=== PATIENT | male | born 1975 | race Caucasian/White ===

== ENCOUNTER 2017-10-07 14:30 | Outpatient (RCR) | payer OTHER, SELFPAY | END 2017-10-07 14:31 | disposition home or self-care (01) | LOC: PT 14:30 | PROVIDERS: Family Provider Family Medicine; PCP Family Medicine; Visit Provider Orthopaedic Surgery | DX: M25.561 Pain in right knee (principal) | CPT/HCPCS: 97010; 97014; 97033; 97110; 97140; G0283 ==

== ENCOUNTER → 2019-07-06 09:55 | Outpatient (CLI) | payer OTHER, SELFPAY ==
--- NOTE | 2019-07-06 10:02 | XR_ITS ---
PROCEDURE: XR KNEE RT 4V CLINICAL INDICATION: 4 views weightbearing Right knee pain COMPARISON: KNEE3L KNEE-3 VIEWS-LT from 12/06/2014 [id number] KNEE-4 OR 5 VIEWS-RT from 02/07/2017 FINDINGS: No fracture or dislocation. No lytic or blastic change. There is normal mineralization. There are minimal osteoarthritic changes involving the medial and lateral compartment. Ununited tibial tuberosity ossification center noted. Other findings:None. IMPRESSION: Minimal osteoarthritic change Dictated by: Pernell Stratton MD 07/06/2019 12:18 Electronically signed by Pernell Stratton MD in [place] 07/06/2019 12:18
--- NOTE | 2019-07-06 10:02 | XR_ITS ---
PROCEDURE: XR KNEE LT 4V CLINICAL INDICATION: left knee pain COMPARISON: KNEE3L KNEE-3 VIEWS-LT from 12/06/2014 [id number] KNEE-4 OR 5 VIEWS-RT from 02/07/2017 FINDINGS: No fracture or dislocation. No lytic or blastic change. There is normal mineralization. There are minimal osteoarthritic changes of the patellofemoral joint Other findings:None. IMPRESSION: Minimal osteoarthritic change patellofemoral joint not significantly changed Dictated by: Pernell Stratton MD 07/06/2019 12:20 Electronically signed by Pernell Stratton MD in [place] 07/06/2019 12:20
== END ==
PROVIDERS: PCP Family Medicine; Visit Provider Orthopaedic Surgery
DX: M25.562 Pain in left knee (principal); M25.561 Pain in right knee; Z98.890 Other specified postprocedural states
CPT/HCPCS: 73564

== ENCOUNTER → 2020-04-03 16:16 | Outpatient (CLI) | payer BC, SELFPAY | PROVIDERS: PCP Family Medicine; Visit Provider Nurse Practitioner | DX: Z03.818 Encounter for observation for suspected exposure to other biological agents ruled out (principal) | CPT/HCPCS: U0003 ==

== ENCOUNTER 2020-04-17 12:55 | Emergency (ER) | payer BC, SELFPAY ==
[2020-04-17 13:08] VITALS: BP 132/90; PULSE 84; RESP 19; TEMP 36.6; O2SAT 98; BMI 21.7
--- NOTE | 2020-04-17 13:12 | HMH.EDUTC ---
[facility] [place] Disposition Clinical Impression: Shingles Qualifiers: Herpes zoster complications: without complications Qualified Code(s): B02.9 - Zoster without complications Disposition: Home, Self-Care Condition on Discharge: Good Instructions: Shingles (Herpes Zoster) (Alternative Therapy), Shingles, DI for Shingles, Acyclovir Additional Instructions: Take medication as prescribed Your referral was faxed to [facility] you will need to call for appointment Make sure to follow up with Eye Doctor You was given referral to [facility] but may follow up where ever you choose FOllow up with Family doctor for further treatment and evaluation Return if needed Straight to ER if any life threatening symptoms Over the counter Motrin may help with pain Over the counter Benadryl may help with itching Prescriptions: Acyclovir [Acyclovir 800mg tab] 800 mg PO 5XDAY 7 Days #35 tab Transmission Status: Received by [id number] Referrals: Ricardo Baron MD [Primary Care Provider] - As needed Dr Horan [Other] Gregorio Brandon MD [Referring] - Time of Disposition: 13:24 Medical Decision Making - Mike Inquiry Pt receiving controlled substance: No Mike was queried for this patient: No Vital Signs: 04/17/20 13:08 04/17/20 13:28 Temperature 97.8 F 97.8 F Temperature Source Oral Pulse Rate 84 Pulse Rate [Right Brachial] 84 Respiratory Rate 19 19 Blood Pressure 132/90 Blood Pressure [Right Arm] 132/90 Blood Pressure Mean [Right Arm] 104 Blood Pressure Source [Right Arm] Automatic Cuff Blood Pressure Position [Right Arm] Sitting 02 Sat by Pulse Oximetry 98 Oxygen Delivery Method Room Air [facility] [place] HPI - General Stated complaint: head and facial rash, and spot on leg Time Seen by Provider: 04/17/20 13:12 Mode of Arrival: Ambulatory Source of Information: Patient Limitations: No Limitations Description of Symptoms (Recalled from Triage Doc. by RN): PATIENT C/O RASH TO FACE SINCE LAST FRIDAY HEENT Symptoms (Recalled from RN notes): No Resp Symptoms (Recalled from RN notes): No Skin Symptoms (Recalled from RN notes): Yes MS Symptoms (Recalled from RN notes): No Functional Status (Recalled from RN notes): WNL - History of Present Illness Provider Complaint: Patient states that he had a sore spot in the left side of the top of his head and he scratched it last week States that it has been sore and the last couple of days he has had rash break out that has spread down his forehead area and getting close to his left eye States that it hurts and valdes and was unsure what it was. States that also has a history of skin cancer and noticed a small spot on his left lower leg and needs referral to Dermatology - Related Data Previous Rx's Medication Instructions Recorded Acyclovir [Acyclovir 800mg tab] 800 mg PO 5XDAY 7 Days #35 tab 04/17/20 Allergies Allergy/AdvReac Type Severity Reaction Status Date / Time acetaminophen [From [place]] Allergy Unknown Verified 09/14/19 10:37 hydrocodone [From [place]] Allergy Unknown Verified 09/14/19 10:37 - Worker's Comp Is this a Worker's Comp case?: No [facility] History - Hepatitis A Screen Drug use history?: No High risk sexual behaviors?: No History of sexually transmitted infection?: No Currently employed?: No Childcare worker?: No Do you have indoor plumbing?: Yes Do you have electricity?: Yes Attestation statement:: This patient has been screened for Hepatitis A risk factors. I have reviewed the patient's past medical history: Yes Medical History: Reports:: Cancer Other Medical History: Reports: Arthritis, Other Laterality Cases: Bilateral: Arthroscopy Knee Other Surgeries: Yes: Cancer Surgery - Social History Smoking Status: Never smoker Tobacco Type: smokeless tobacco Alcohol Intake: never Occupational Status: other Family Hx:: No significant family history ROS Obtained: Yes All systems reviewed & no additional complaints, Yes Systems
[2020-04-17 13:28] VITALS: BP 132/90; PULSE 84; RESP 19; TEMP 36.6; O2SAT 98
== END 2020-04-17 13:30 | disposition home or self-care (01) ==
PROVIDERS: Emergency Provider Nurse Practitioner; PCP Family Medicine
DX: B02.9 Zoster without complications (principal)
CPT/HCPCS: 99201

== ENCOUNTER → 2020-09-19 12:32 | Outpatient (CLI) | payer BC, SELFPAY ==
[2020-09-19 14:22] LABS: Coronavirus 19 IgG Antibody Positive (Negative); Coronavirus 19 IgM Antibody Negative (Negative)
== END ==
PROVIDERS: Visit Provider Surgery
DX: Z01.812 Encounter for preprocedural laboratory examination (principal); Z20.822 Contact with and (suspected) exposure to COVID-19; Z86.16 Personal history of COVID-19; Z12.11 Encounter for screening for malignant neoplasm of colon
CPT/HCPCS: 36415; 86328

== ENCOUNTER 2020-09-21 08:32 | Day surgery (SDC) | payer BC, SELFPAY ==
[2020-09-18 12:53] VITALS: BMI 21.7
[2020-09-21 08:52] VITALS: BP 124/78; PULSE 74; RESP 18; TEMP 36.4; O2SAT 97
[2020-09-21 09:17] VITALS: O2SAT 97
--- NOTE | 2020-09-21 09:42 | HMH.ANESCL ---
[facility] Anesthesia Checklist - Structural Data Admitted From: Home Planned Operative Procedure/s: colonoscopy Consent for Planned Operative Procedure(s) Verified: Yes - Airway Assessment C-Spine Mobility Assessed: Yes TMJ Mobility Assessed: Yes Dentition: Good Dentition - Neurological Assessment Level of Consciousness: Awake, Alert, Appropriate - Anesthesia Plan Anesthesia Risk discussed: Yes Anesthesia Plan: Verified ASA Class: II Anesthesia Type: MAC [facility] History I have reviewed the patient's past medical history: Yes Medical History: Reports:: Cancer (malignant melanoma) Denies:: Diabetes Mellitus Type 1, Diabetes Mellitus Type 2, MRSA, Seizures *Have you ever received a pneumonia vaccine?: No *Have you received a flu vaccine this season?: No Other Medical History: Reports: Arthritis, Other Anesthesia experience/problems:: none Laterality Cases: Bilateral: Arthroscopy Knee Other Surgeries: Yes: Cancer Surgery Amputation: No Fractures: Yes (tib/fib angela and screws) - *Social History Last grade of school completed: Some college Smoking Status: Never smoker Tobacco Type: smokeless tobacco Alcohol Intake: current Alcohol Intake Frequency:: a few times a month Substance Use Type: denies use *Occupational Status:: employed *Travel in the last 8 weeks: None Family Hx:: No significant family history
[2020-09-21 09:55] VITALS: BP 96/65; PULSE 77; RESP 18; TEMP 36.3; O2SAT 95
--- NOTE | 2020-09-21 09:56 | P.PCN_ITS ---
- Procedure: Date: 09/21/20 Patient Date of :: 1975 Procedure Performed:: Colonoscopy with polypectomy Indications:: Screening Performing Provider:: Livan Dinero MD Referring Provider:: . Sedation:: Monitored anesthesia care Procedure:: After informed consent was obtained the patient was taken to the endoscopy suite. Sedation ensued after the patient was transferred to the left lateral decubitus position. Pulse, blood pressure, and oxygen saturation were monitored throughout the procedure. Digital rectal exam revealed no significant ab normality. The colonoscope was placed in position. The entire colon was evaluated. The colonoscope was carefully removed and the patient was transferred to recovery in stable condition. Please see findings and specimens below for detail. Findings:: Bowel preparation relatively fair Fairly severe spasticity Severe tortuosity of hepatic flexure/right colon Polyps (see specimens) Specimens:: Polyp at 60 cm (cold snare) Polyp at 50 cm (cold snare) Recommendations:: Timing of repeat colonoscopy is pending pathology but will likely be between 2-3 years secondary to nature of polyps, tortuosity, and spasticity. Complications:: No immediate Estimated blood obtained (mL): 1
[2020-09-21 10:05] VITALS: BP 97/62; PULSE 57; RESP 18; TEMP 36.3; O2SAT 98
[2020-09-21 10:15] VITALS: BP 95/60; PULSE 52; RESP 16; TEMP 36.3; O2SAT 100
[2020-09-21 10:41] VITALS: BP 104/50; PULSE 67; RESP 18; TEMP 36.3; O2SAT 100
== END 2020-09-21 10:41 | disposition home or self-care (01) ==
LOC: OUTP 08:35
PROVIDERS: PCP Internal Medicine Adolescent Medicine; Visit Provider Surgery
PROC: 0DJD8ZZ Inspection of Lower Intestinal Tract, Via Natural or Artificial Opening Endoscopic (ICD-10-PCS; CPT 45385; principal; 2020-09-21 09:30)
DX: Z12.11 Encounter for screening for malignant neoplasm of colon (principal); K58.9 Irritable bowel syndrome, unspecified; K56.2 Volvulus; K63.5 Polyp of colon; M19.90 Unspecified osteoarthritis, unspecified site; Z85.820 Personal history of malignant melanoma of skin; Z88.6 Allergy status to analgesic agent
CPT/HCPCS: 45385

== ENCOUNTER → 2020-12-27 09:55 | Outpatient (CLI) | payer BC, SELFPAY ==
--- NOTE | 2020-12-27 10:00 | XR_ITS ---
PROCEDURE: XR CHEST 2V CLINICAL HISTORY: COUGH COMPARISON: CR CXR CHEST(2 VIEWS-NOT PORTABLE) from 06/22/2015 CR CXR2V XR chest 2V from 07/28/2018 FINDINGS: The cardiomediastinal silhouette and pulmonary vascularity are within normal limits. The lungs are clear without infiltrates, suspicious nodules, or pleural effusions. Few calcified granulomas are noted. No acute bony abnormalities. Postsurgical changes in the right axilla. IMPRESSION: No acute findings. Dictated by: Claudia Mota 12/27/2020 13:04 Claudia Mota in [place] 12/27/2020 13:04
--- NOTE | 2020-12-27 10:00 | XR_ITS ---
PROCEDURE: XR CLAVICLE LT CLINICAL INDICATION: LT SHOULDER PAIN COMPARISON: No exams were available for comparison FINDINGS: No fracture or dislocation. No lytic or blastic change. There is normal mineralization. The joint spaces are well-preserved. No significant degenerative/arthritic changes. No erosive changes evident. Other findings:None. IMPRESSION: No acute findings. Dictated by: Claudia Mota 12/27/2020 13:05 Claudia Mota in [place] 12/27/2020 13:05
--- NOTE | 2020-12-27 10:00 | XR_ITS ---
PROCEDURE: XR SHOULDER LT MIN 2V CLINICAL INDICATION: LT ANTERIOR SHOULDER PAIN COMPARISON: No exams were available for comparison FINDINGS: No fracture or dislocation. No lytic or blastic change. There is normal mineralization. The joint spaces are well-preserved. No significant degenerative/arthritic changes. No erosive changes evident. No periarticular calcification. Other findings:No significant soft tissue abnormality. The visualized left hemithorax is unremarkable. IMPRESSION: No acute findings. Dictated by: Claudia Mota 12/27/2020 13:06 Claudia Mota in [place] 12/27/2020 13:06
== END ==
PROVIDERS: PCP Internal Medicine Adolescent Medicine; Visit Provider Internal Medicine Adolescent Medicine
DX: M25.512 Pain in left shoulder (principal); Q74.0 Other congenital malformations of upper limb(s), including shoulder girdle; R05 Cough
CPT/HCPCS: 71046; 73000; 73030

== ENCOUNTER → 2021-11-20 17:07 | Outpatient (CLI) | payer BC, SELFPAY ==
--- NOTE | 2021-11-20 17:16 | XR_ITS ---
PROCEDURE INFORMATION: Exam: XR Left Tibia and Fibula Exam date and time: 11/20/2021 5:11 PM Age: 46 years old Clinical indication: Lower leg; Left; Prior surgery; Surgery date: 6+ months; Surgery type: Hardware; Patient HX: Pain with no injury; Additional info: Ankle pain TECHNIQUE: Imaging protocol: XR Left tibia and fibula. Views: 2 views. COMPARISON: Left ankle radiographs November 20, 2021 5:10 p.m. FINDINGS: Bones/joints: Postoperative changes consistent with ORIF. The proximal portion of the intramedullary fixation device is intact. There are no findings to suggest hardware malfunction. 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 There is no evidence of acute fracture. Soft tissues: Normal. IMPRESSION: 1. Postoperative changes consistent with ORIF. 2. Chronic posttraumatic deformity involving the fibular diaphysis.
--- NOTE | 2021-11-20 17:16 | XR_ITS ---
PROCEDURE INFORMATION: Exam: XR Left Ankle Exam date and time: 11/20/2021 5:10 PM Age: 46 years old Clinical indication: Pain; Ankle; Left; Prior surgery; Surgery date: 6+ months; Surgery type: Hardware; Additional info: Ankle pain TECHNIQUE: Imaging protocol: XR Left ankle. Views: 3 or more views. COMPARISON: None FINDINGS: Bones/joints: Evidence of previous ORIF involving the visualized tibia. No evidence of hardware malpositioning. No evidence of acute osseous injury. Soft tissues: Normal. IMPRESSION: 1. Postoperative changes consistent with previous ORIF of the visualized tibia. 2. Otherwise unremarkable left ankle.
[2021-11-20 17:40] LABS: Basophils % 0.4 % (0.1-2.0); Eosinophils # 0.1 K/mm3 (0.0-0.4); Eosinophils % 0.9 % (0.1-12.0); Hematocrit 49.5 % (42.0-52.0); Hemoglobin 15.8 g/dL (14.1-18.0); Lymphocytes # 1.7 K/mm3 (0.7-4.5); Lymphocytes % 20.7 % (10-50); Mean Corpuscular HGB Conc 31.9 g/dL (31.8-35.4); Mean Corpuscular Hemoglobin 33.9 pg (27.0-31.2); Mean Corpuscular Volume 106.3 fl (80-94); Mean Platelet Volume 7.7 fl (7.4-10.4); Monocytes # 0.5 K/mm3 (0.1-1.0); Neutrophils # 5.8 K/mm3 (1.8-7.8); Neutrophils % 72.1 % (37.0-80.0); Platelet Count 641 K/mm3 (142-424); Red Blood Count 4.66 M/mm3 (4.60-6.20); Red Cell Distribution Width 13.9 % (11.5-17.5)
[2021-11-20 18:08] LABS: C-Reactive Protein 0.6 mg/L (0-4)
[2021-11-20 18:25] LABS: Erythrocyte Sedimentation Rate 4 mm/hr (0-15)
== END ==
PROVIDERS: PCP Internal Medicine Adolescent Medicine; Visit Provider Orthopaedic Surgery
DX: M25.572 Pain in left ankle and joints of left foot (principal); M77.9 Enthesopathy, unspecified
CPT/HCPCS: 36415; 73590; 73610; 85025; 85651; 86140

== ENCOUNTER → 2021-12-06 13:26 | Outpatient (CLI) | payer BC, SELFPAY ==
--- NOTE | 2021-12-06 13:26 | MR_ITS ---
FINAL REPORT CLINICAL HISTORY: possible Calf muscle tear. BRUISING AND PAIN IN MID TIB/FIB [id number]. NO INJURY OR TRAUMA. FINDINGS: Multiplanar MR imaging of the left tibia fibula was performed without contrast. There is an intramedullary angela in the left tibia. There is a chronic left fibula fracture. No bony mass is identified. The musculature is intact. No localized soft tissue inflammation is identified. No soft tissue mass or cyst is identified. IMPRESSION: Intact musculature. No acute bony abnormality. Chronic left fibula fracture. Intramedullary angela in the tibia. Reviewed, Interpreted and Dictated by Baudilio Kirkland III, MD Transcribed by Edward Beckwith Authenticated by Baudilio Kirkland III, MD on 12/06/2021 03:58:42 PM [facility]
== END ==
PROVIDERS: PCP Internal Medicine Adolescent Medicine; Visit Provider Orthopaedic Surgery
DX: M79.662 Pain in left lower leg (principal)
CPT/HCPCS: 73718

== ENCOUNTER 2022-01-17 11:48 | Emergency (ER) | payer BC, SELFPAY ==
[2022-01-17 11:50] VITALS: BP 134/84; PULSE 74; RESP 17; TEMP 36.7; O2SAT 98; BMI 22.4
--- NOTE | 2022-01-17 12:07 | HMH.EDUTC ---
[facility] [place] Disposition Clinical Impression: Tick bite Qualifiers: Encounter type: initial encounter Site of tick bite: unspecified site Qualified Code(s): W57.XXXA - Bitten or stung by nonvenomous insect and other nonvenomous arthropods, initial encounter Disposition: Home, Self-Care Condition on Discharge: Good Instructions: Protect Yourself from Tickborne Illnesses, How to Remove a Tick, Doxycycline Additional Instructions: Watch area for worsening of rash and follow up with your Family Doctor immediately Take medication as prescribed Return if needed Straight to ER if any life threatening symptoms Make sure to follow up in the next 5-7 days to see if your results are back and the finding Prescriptions: Doxycycline Monohydrate [Doxycycline [place] 100mg Tab] 100 mg PO BID 10 Days #20 tab Transmission Status: Pending to [id number] Referrals: Ricardo Carl MD [Primary Care Provider] - As needed Time of Disposition: 12:19 Medical Decision Making - Mike Inquiry Pt receiving controlled substance: No Mike was queried for this patient: No Vital Signs: 01/17/22 11:50 Temperature 98.1 F Temperature Source Oral Pulse Rate [Right Brachial] 74 Respiratory Rate 17 Blood Pressure [Right Arm] 134/84 Blood Pressure Mean [Right Arm] 100 Blood Pressure Source [Right Arm] Automatic Cuff Blood Pressure Position [Right Arm] Sitting 02 Sat by Pulse Oximetry 98 Oxygen Delivery Method Room Air [facility] [place] HPI - General Stated complaint: tick bite/rash Time Seen by Provider: 01/17/22 12:07 Mode of Arrival: Ambulatory Source of Information: Patient Limitations: No Limitations Description of Symptoms (Recalled from Triage Doc. by RN): PATIENT C/O TICK BITE TO LOWER LEFT ABDOMEN THAT HAPPENED YESTERDAY HEENT Symptoms (Recalled from RN notes): No Resp Symptoms (Recalled from RN notes): No Skin Symptoms (Recalled from RN notes): Yes MS Symptoms (Recalled from RN notes): No Functional Status (Recalled from RN notes): WNL - History of Present Illness Provider Complaint: Patient states that he had a tick on him a couple weeks ago and he removed it States that he noticed a couple days ago he was starting to break out in rash around the area he was bitten States that today the rash looked worse so he came in - Related Data Previous Rx's Medication Instructions Recorded Doxycycline Monohydrate 100 mg PO BID 10 Days #20 tab 01/17/22 [Doxycycline [place] 100mg Tab] Allergies Allergy/AdvReac Type Severity Reaction Status Date / Time acetaminophen [From [place]] Allergy Unknown Verified 12/25/21 13:55 hydrocodone [From [place]] Allergy Unknown Verified 12/25/21 13:55 - Worker's Comp Is this a Worker's Comp case?: No [facility] History - Hepatitis A Screen Attestation statement:: This patient has been screened for Hepatitis A risk factors. I have reviewed the patient's past medical history: Yes Medical History: Reports:: Cancer Denies:: Diabetes Mellitus Type 1, Diabetes Mellitus Type 2, MRSA, Seizures Other Medical History: Reports: Arthritis, Other Laterality Cases: Bilateral: Arthroscopy Knee Other Surgeries: Yes: Cancer Surgery, Colonoscopy Amputation: No Fractures: Yes (tib/fib angela and screws) - Social History Smoking Status: Never smoker Tobacco Type: smokeless tobacco Alcohol Intake: current Alcohol Intake Frequency:: a few times a month Substance Use Type: denies use Occupational Status: employed Family Hx:: No significant family history ROS Obtained: Yes All systems reviewed & no additional complaints, Yes Systems reviewed as appropriate & no additional complaints - Constitutional Constitutional: Reports system reviewed and no additional complaints, except as docu, Denies body ache, Denies chills, Denies fever(s) - ENT Ears, Nose, Mouth, and Throat: Reports system reviewed and no additional complaints, except as docu - Cardiovascular Cardiovascular: Reports system reviewed and no additiona
[2022-01-17 12:15] VITALS: BP 134/84; PULSE 74; RESP 17; TEMP 36.7; O2SAT 98
[2022-02-04 17:10] LABS: IgG P18 Ab. Absent (.); IgG P23 Ab. Absent (.); IgG P28 Ab. Absent (.); IgG P30 Ab. Absent (.); IgG P39 Ab. Absent (.); IgG P41 Ab. Absent (.); IgG P45 Ab. Absent (.); IgG P58 Ab. Absent (.); IgG P66 Ab. Absent (.); IgG P93 Ab. Absent (.); IgM P23 Ab. Absent (.); IgM P39 Ab. Absent (.); IgM P41 Ab. Absent (.); Lyme IgG WB Interp. Negative (.); Lyme IgM WB Interp. Negative (.)
== END 2022-01-17 12:23 | disposition home or self-care (01) ==
PROVIDERS: Emergency Provider Nurse Practitioner; PCP Internal Medicine Adolescent Medicine
DX: R21 Rash and other nonspecific skin eruption (principal); W57.XXXA Bitten or stung by nonvenomous insect and other nonvenomous arthropods, initial encounter
CPT/HCPCS: 86617; 99212; G0463

== ENCOUNTER 2022-10-31 12:32 | Emergency (ER) | payer BC, SELFPAY ==
[2022-10-31 13:30] VITALS: BP 124/87; PULSE 87; RESP 20; TEMP 36.9; O2SAT 98; BMI 23.0
--- NOTE | 2022-10-31 13:36 | EXP.UTC ---
Discharge Plan Disposition Patient Disposition: Home, Self-Care Condition: Good Prescriptions Prescriptions: New benzonatate [benzonatate] 100 mg capsule 100 mg PO TIDP PRN (Reason: Cough) Qty: 30 0RF methylprednisolone 4 mg Tablets,Dose Pack 4 mg PO DIRECTED Qty: 21 0RF amoxicillin-pot clavulanate 875-125 mg Tablet 1 tab PO Q12H Qty: 20 0RF No Action methocarbamol 500 mg tablet 500 mg PO NEEDED PRN (Reason: .) Label Comments: TAKE 2 TABLETS BY MOUTH FOUR TIMES DAILY FOR 5 DAYS alfuzosin 10 mg tablet extended release 24 hr 10 mg PO DAILY Label Comments: TAKE 1 TABLET BY MOUTH EVERY DAY Referrals Follow up/Referrals: Ricardo Carl MD [Primary Care Provider] - See instructions Activity Restrictions/Add. Instructions Additional Instructions/Restrictions: Drink plenty of fluids. Take tylenol or ibuprofen for pain or fever. Take the medications as directed. Follow up with your regular doctor. GO TO THE ER FOR ANY WORSENING SYMPTOMS Don't start the oral steroids (medrol dose pack) until tomorrow, since you had the shot here today. Clinical Impressions Clinical Impression: Acute sinusitis Instructions Patient Instructions: Sinusitis, DI for Sinusitis, Dexamethasone Injection Discharge ED Provider: Brandin Trujillo [facility] General Stated complaint: Congestion, drainage, headache Time Seen by Provider: 10/31/22 13:34 History of Present Illness Provider Complaint: He states that for the past 2 weeks he has had sinus congestion, ear pressure and sinus drainage. He denies fever. Related Data Home Medications Medication Instructions Recorded Confirmed alfuzosin 10 mg tablet,extended 10 mg PO DAILY prostate 10/31/22 10/31/22 release 24 hr methocarbamol 500 mg tablet 500 mg PO NEEDED PRN . 10/31/22 10/31/22 Previous Rx's Medication Instructions Recorded amoxicillin 875 mg-potassium 1 tab PO Q12H #20 tabs 10/31/22 clavulanate 125 mg tablet benzonatate 100 mg capsule 100 mg PO TIDP PRN Cough #30 caps 10/31/22 methylprednisolone 4 mg tablets in 4 mg PO DIRECTED #21 tabs 10/31/22 a dose pack Allergies Allergy/AdvReac Type Severity Reaction Status Date / Time acetaminophen [From [place]] Allergy Unknown Verified 10/31/22 13:42 hydrocodone [From [place]] Allergy Unknown Verified 10/31/22 13:42 [facility] Disclaimer: The information contained in this section may have been updated after the patient was seen, as this information can be updated by other users. Social History Smoking Status: Never smoker alcohol intake: current substance use type: denies use current occupational status: employed Travel in the last 8 weeks: None caffeine: Yes ROS Obtained: Yes All systems reviewed & no additional complaints except as documented Constitutional Constitutional: Reports poor appetite Eyes Eyes: Reports system reviewed and no additional complaints, except as documented ENT Ears, Nose, Mouth, and Throat: Reports as per HPI Cardiovascular Cardiovascular: Reports system reviewed and no additional complaints, except as documented and Denies chest pain Respiratory Respiratory: Denies shortness of breath, Denies chest congestion, Reports cough, Denies stridor and Denies wheezing Gastrointestinal Gastrointestingal: Reports system reviewed and no additional complaints, except as documented; Denies abdominal pain, diarrhea or vomiting Musculoskeletal Musculoskeletal: Reports system reviewed and no additional complaints, except as documented and Denies arthralgias Integumentary/Breasts Skin/Breast: Reports system reviewed and no additional complaints, except as documented and Denies rash Neurologic Neurologic: Denies paresthesias Allergic/Immunologic Allergic/Immunologic: Denies wheezing Physical Exam General General appearance: alert and in no apparent distress Eye Eye exam:
[2022-10-31 14:20] VITALS: BP 124/87; PULSE 87; RESP 20; TEMP 36.9; O2SAT 98
== END 2022-10-31 14:19 | disposition home or self-care (01) ==
PROVIDERS: Emergency Provider Nurse Practitioner Family; PCP Internal Medicine Adolescent Medicine
DX: J01.90 Acute sinusitis, unspecified (principal)
CPT/HCPCS: 96372; 99212; 99214; G0463

== ENCOUNTER → 2023-04-23 11:16 | Outpatient (CLI) | payer BC, SELFPAY ==
--- NOTE | 2023-04-23 11:24 | XR_ITS ---
FINAL REPORT CLINICAL HISTORY: ACUTE COUGH COMPARISON: 12/27/2020 FINDINGS: TWO-VIEW CHEST The heart size is normal. The mediastinum is normal. The lungs are clear. There is no pneumothorax. There are postoperative changes in the right axilla. IMPRESSION: No acute cardiopulmonary process. Reviewed, Interpreted and Dictated by Baudilio Kirkland III, MD Transcribed by Janay Camacho Authenticated and [facility]
[2023-04-23 12:00] LABS: Basophils % 0.7 % (0.1-2.0); Eosinophils # 0.2 K/mm3 (0.0-0.4); Eosinophils % 2.2 % (0.1-12.0); Hematocrit 46.8 % (42.0-52.0); Hemoglobin 15.5 g/dL (14.1-18.0); Lymphocytes # 1.7 K/mm3 (0.7-4.5); Lymphocytes % 25.2 % (10-50); Mean Corpuscular HGB Conc 33.2 g/dL (31.8-35.4); Mean Corpuscular Hemoglobin 32.8 pg (27.0-31.2); Mean Corpuscular Volume 98.9 fl (80-94); Mean Platelet Volume 7.9 fl (7.4-10.4); Monocytes # 0.4 K/mm3 (0.1-1.0); Monocytes % 5.6 % (1.7-9.3); Neutrophils # 4.5 K/mm3 (1.8-7.8); Neutrophils % 66.3 % (37.0-80.0); Platelet Count 349 K/mm3 (142-424); Red Blood Count 4.73 M/mm3 (4.60-6.20); Red Cell Distribution Width 13.2 % (11.5-17.5); White Blood Count 6.8 K/mm3 (4.8-10.8)
[2023-04-23 12:42] LABS: Chloride 106 mmol/L (98-107); Potassium 4.4 mmoL/L (3.5-5.1); Sodium 141 mmol/L (136-145)
[2023-04-23 12:45] LABS: Alanine Aminotransferase 20 U/L (12-78); Albumin Level 4.1 g/dl (3.5-5.0); Albumin/Globulin Ratio 1.5 (1.1-1.8); Alkaline Phosphatase 95 U/L (38-126); Anion Gap 12.4 mEq/L (5-15); Aspartate Amino Transferase 23 U/L (17-59); Bilirubin,Total 0.8 mg/dl (0.2-1.3); Blood Urea Nitrogen 13 mg/dl (9-20); Calcium 9.6 mg/dl (8.4-10.2); Carbon Dioxide 27 mmol/L (22.0-30.0); Estimated Glomerular Filt Rate 80 ml/min (>60); GFR (African American) 97 ML/MIN (>60); Globulin 2.8 g/dL (1.3-3.2); Glucose 90 mg/dl (74-100); Total Protein,Serum 6.9 g/dl (6.3-8.2)
== END ==
PROVIDERS: PCP Internal Medicine Adolescent Medicine; Visit Provider Internal Medicine Adolescent Medicine
DX: R05.1 Acute cough (principal); Z20.9 Contact with and (suspected) exposure to unspecified communicable disease; Z85.820 Personal history of malignant melanoma of skin
CPT/HCPCS: 36415; 71046; 80053; 85025

== ENCOUNTER 2024-10-19 16:32 | Emergency (ER) | payer OTHER, SELFPAY ==
[2024-10-19 16:33] VITALS: BP 125/82; PULSE 105; RESP 18; TEMP 38.4; O2SAT 98; BMI 21.7
[2024-10-19 16:52] LABS: Coronavirus 19, PCR Not Detected (NotDetected); Influenza B, PCR Not Detected (NotDetected)
--- NOTE | 2024-10-19 16:52 | ED_ITS ---
<Statement entered by Hilda Torres DO - 10/19/24 23:12> I was consulted by the AYDEN, and we discussed the complexity of the problems being addressed. I approved the treatment and management plan for this patient's care in the emergency department, thus performing a substantive portion of the medical decision making. Hilda Torres DO Discharge Plan Disposition Patient Disposition: Home, Self-Care Condition: Good Prescriptions Prescriptions: New oseltamivir [Tamiflu] 75 mg capsule 75 mg PO BID 5 Days Qty: 10 0RF Referrals Follow up/Referrals: Ricardo Carl MD [Primary Care Provider] - See instructions Activity Restrictions/Add. Instructions Additional Instructions/Restrictions: I have ordered you Tamiflu. You got the first dose in the emergency department. Please take till its gone. I recommend continue taking Tylenol alternating with Motrin every 4 hours for symptoms. If you have any new or worsening signs or symptoms follow-up with your PCP within 48 hours or return to the ER as needed. Clinical Impressions Clinical Impression: Influenza A Print Language Print Language: Swedish Discharge ED Provider: Hilda Torres General Adult HPI General Chief complaint: Upper Respiratory Infection Stated complaint: Fever,cough Time Seen by Provider: 10/19/24 16:33 History of Present Illness HPI narrative: Patient presents for evaluation of cough congestion fever and malaise. Patient gives a 3-day history of bodyaches headache nonproductive cough. Patient denies chest pain shortness of breath hemoptysis hematochezia melena nausea vomit diarrhea. Patient does have a history of recurrent melanoma and currently has melanoma on his chest wall and is due to have excision soon. Related Data Previous Rx's ?Medication ?Instructions ?Recorded oseltamivir 75 mg capsule (Tamiflu) 75 mg PO BID 5 days #10 caps 10/19/24 Allergies Allergy/AdvReac Type Severity Reaction Status Date / Time No Known Allergies Allergy Verified 10/19/24 17:25 [facility] Disclaimer: The information contained in this section may have been updated after the patient was seen, as this information can be updated by other users. Medical History (Updated 10/19/24 @ 17:26 by DIANA Naqvi) Tibia fracture Melanoma Social History Smoking Status: Never smoker alcohol intake: current alcohol intake frequency: a few times a month substance use type: denies use current occupational status: employed Travel in the last 8 weeks: None caffeine: Yes Have you lived/traveled outside US in past 30 days?: No Contact w/someone who lives/traveled outside US past 30 days?: No Exposure to someone with infectious disease in past 14 days?: No Do you have a fever (greater than 100.4 F or 38 C)?: Yes Have you tested positive for COVID-19: No Exposed to someone with COVID-19 in past 14 days?: No Do you have a sore throat?: No Do you have a cough?: Yes Do you have any weakness?: No Do you have any diarrhea?: No Are you experiencing any unusual bleeding?: No Do you have any muscle aches/pain?: No Do you have any abdominal pain?: No Are you experiencing loss of taste or smell?: No Other Medical History Have you received the Flu Vaccine for this season: No Have you received the Pneumonia Vaccine: No ROS Obtained: Yes Systems reviewed as appropriate & no additional complaints except as documented Physical Exam General General appearance: alert and in no apparent distress Respiratory Respiratory exam: Present normal lung sounds bilaterally Cardiovascular Cardiovascular exam: Present regular rate; Absent normal rhythm Neurological Exam Neurological exam: Present alert and oriented X3 Medical Decision Making Medical Records Medical records reviewed: Yes I reviewed the patient's medical records. Screening: Per USPSTF and CDC recommendations, given the prevalence of disease in our region, it is our hospital?s policy to screen for HIV and viral Hepatitis for all patients aged 18 and over and those with ongoing risk factors. Mike Inquiry Pt receiving controlled substance: No Vital Signs: 10/19/24 16:33 10/19/24 17:39 Temperature 101.1 F H 100.2 F H Temperature Source Oral Oral Pulse Rate 104 H Pulse Rate [Right Radial] 105 H Respiratory Rate 18 18 Blood Pressure 131/80 Blood Pressure [Left Arm] 125/82 Blood Pressure Mean [Left Arm] 96 02 Sat by Pulse Oximetry 98 Oxygen Delivery Method Room Air Room Air Lab Data Lab results reviewed: Yes I reviewed the patient's lab results. Lab Results 10/19/24 16:39: SARS-CoV-2 (PCR) Not detected, Influenza A Untype (PCR) Detected A, Influenza Type B (PCR) Not detected Orders (Tests/Meds): ED MEDICATIONS Discontinued Medications Generic Name Dose Route Start Last Admin Trade Name Priya PRN Reason Stop Dose Admin Acetaminophen 1,000 mg 10/19/24 16:52 10/19/24 17:02 Acetaminophen 500mg Tab PO 10/19/24 16:53 1,000 mg ONCE ONE Administration Oseltamivir Phosphate 75 mg 10/19/24 17:34 10/19/24 17:35 Oseltamivir 75mg Capsule PO 10/19/24 17:35 75 mg ONCE ONE Administration ORDERS Category Date Time Status Rapid PCR Covid and Flu A/B Stat Lab 10/19/24 16:39 Completed Medical Decision Narrative: In summary patient is a 48-year-old male who presents to the emergency department for evaluation of respiratory tract infection. Patient is initially normotensive at 125/82 with sinus tachycardia of 105 on the monitor breathing 18 times a minute satting at 90% on room air with a temperature of 101.1 upon arriv al. Physical exam is remarkable for clear breath sounds with no increased work of breathing no nuchal rigidity no meningeal signs no erythematous or exudate to posterior pharynx no cervical lymphadenopathy. Differential diagnosis includes upper or lower respiratory tract infection. Initial workup will be conducted with COVID and flu swabs for now. Initial interventions include Tylenol and ibuprofen. Initial workup reviewed by me patient is indeed flu positive. Upon repeat evaluation patient's fever had started to decline to 100.2 tachycardia was still present but at 104. Given this patient is high risk since thus I have offered the patient Tamiflu and he is excepted. First dose was given here and prescription sent to his pharmacy. Thus patient is ready for discharge with strict return precautions close follow-up with his PCP for any continued or worsening signs or symptoms. Critical Care Critical Care Time Critical Care Time: No
[2024-10-19] MEDS: ACETAMINOPHEN 500MG TAB 1000 MG PO (17:02)
[2024-10-19 17:13] LABS: Influenza A, PCR Detected (NotDetected)
[2024-10-19] MEDS: OSELTAMIVIR 75MG CAPSULE 75 MG PO (17:35)
[2024-10-19 17:39] VITALS: BP 131/80; PULSE 104; RESP 18; TEMP 37.9; O2SAT 96
== END 2024-10-19 17:40 | disposition home or self-care (01) ==
PROVIDERS: Emergency Provider Emergency Medicine; PCP Internal Medicine Adolescent Medicine
DX: J10.1 Influenza due to other identified influenza virus with other respiratory manifestations (principal); R50.9 Fever, unspecified; R05.9 Cough, unspecified; R09.81 Nasal congestion; R53.81 Other malaise; R51.9 Headache, unspecified; M79.10 Myalgia, unspecified site
CPT/HCPCS: 87636; 99283

== ENCOUNTER 2025-02-15 08:00 | Day surgery (SDC) | payer OTHER, SELFPAY ==
[2025-02-09 11:39] VITALS: BMI 23.0
[2025-02-15 08:51] VITALS: BP 135/85; PULSE 60; RESP 20; TEMP 36.6; O2SAT 99
--- NOTE | 2025-02-15 08:57 | EXP.GEN.HP ---
HPI HPI HPI: This is a 49-year-old gentleman who presents for endoscopic evaluation of epigastric pain and history of colon polyps. Colonoscopy in September 2020 was somewhat complicated by fairly severe spasticity and fairly profound tortuosity (particularly of the hepatic flexure and right colon). Tubular adenomas at 60 and 50 cm were excised. Recommendations for 2-3-year repeat were made. Over the past few months he has noticed some intermittent bloating, as well as epigastric pain. Intermittent reflux also noted. [facility] Disclaimer: The information contained in this section may have been updated after the patient was seen, as this information can be updated by other users. Medical History (Updated 02/15/25 @ 08:59 by iLvan Dinero MD) Melanoma Surgical History (Updated 02/09/25 @ 11:39 by Elva Holley RN) Tibia fracture Family History (Updated 02/09/25 @ 11:38 by Elva Holley RN) No significant family history Social History (Updated 02/09/25 @ 11:38 by Elva Holley RN) Smoking Status: Never smoker alcohol intake: never substance use type: denies use current occupational status: employed Travel in the last 8 weeks?: None caffeine: Yes Have you lived/traveled outside US in past 30 days?: No Contact w/someone who lives/traveled outside US past 30 days?: No Exposure to someone with infectious disease in past 14 days?: No Do you have a fever (greater than 100.4 F or 38 C)?: No Have you tested positive for COVID-19?: No Exposed to someone with COVID-19 in past 14 days?: No Do you have a sore throat?: No Do you have a cough?: No Do you have any weakness?: No Do you have any diarrhea?: No Are you experiencing any unusual bleeding?: No Do you have any muscle aches/pain?: No Do you have any abdominal pain?: No Are you experiencing loss of taste or smell?: No Other Medical History Have you received the Flu Vaccine for this season: No Have you received the Pneumonia Vaccine: No Review of Systems Review of Systems Review of systems:: pertinent systems reviewed and negative unless documented below *Gastrointestinal Gastrointestinal: Reports as per HPI Meds Home Medications and Allergies Home Medications ?Medication ?Instructions ?Recorded ?Confirmed ?Type No Known Home Medications 02/15/25 02/15/25 History New Prescriptions to Start Prescriptions: Allergies Allergy/AdvReac Type Severity Reaction Status Date / Time No Known Allergies Allergy Verified 10/19/24 17:25 Exam Data for Last 24 hours Vital signs and Labs for Last 24 Hours: Temp Pulse Resp BP Pulse Ox O2 Del Method 97.8 F 60 20 135/85 99 Room Air 02/15/25 08:51 02/15/25 08:51 02/15/25 08:51 02/15/25 08:51 02/15/25 08:51 02/15/25 08:51 Constitutional Constitutional: no acute distress *Routine HEENT Exam Head: Present normocephalic Eye: Present EOMI ENT: Present mucous membranes moist *Routine Neck Exam Neck: Present full ROM *Routine Respiratory Exam Respiratory: Absent respiratory distress *Routine Cardiovascular Exam Cardiovascular: Absent tachycardia *Routine Abdominal Exam Abdominal: Present soft *Routine Rectal Exam Rectal:: deferred *Routine Genitalia Exam Genitalia:: deferred *Routine Extremities Exam Extremities: Present full ROM *Routine Skin Exam Skin: Absent erythema *Routine Neurological Exam Neurological: Present alert Assessment and Plan *Assessment and plan (1) History of colon polyps: Status: Acute Category: Medical Code(s): Z86.0100 - Personal history of colon polyps, unspecified (2) Epigastric pain: Status: Acute Category: Medical Code(s): R10.13 - Epigastric pain (3) Gastroesophageal reflux: Status: Acute Qualifiers: Esophagitis presence: esophagitis presence not specified Qualified Code(s): K21.9 - Gastro-esophageal reflux disease without esophagitis Category: Medical Code(s): K21.9 - Gastro-esophageal reflux disease without esophagitis (4) Abdominal bloating: Status: Acute Category: Medical Code(s): R14.0 - Abdominal distension (gaseous) Plan: Consider gastroenterology consultation Plan Esophagogastroduodenoscopy/colonoscopy today I have discussed the risks and benefits including, but not limited to: Bleeding Infection Damage to surrounding tissue Inherent risks of sedation The patient agrees to proceed.
--- NOTE | 2025-02-15 08:59 | HMH.SCOPE ---
Procedure: Date: 02/15/25 Patient Date of :: 1975 Procedure Performed:: Esophagogastroduodenoscopy with biopsy Colonoscopy with polypectomy Indications:: History of colon polyps Gastroesophageal reflux Epigastric pain Note: Colonoscopy in September 2020 somewhat complicated by fairly severe spasticity and fairly profound tortuosity (particularly of the hepatic flexure and right colon). Tubular adenomas at 60 cm and at 50 cm were excised. Performing Provider:: Livan Dinero MD Referring Provider:: . Sedation:: Monitored anesthesia care Procedure:: After informed consent was obtained the patient was taken to the endoscopy suite. Sedation ensued after the patient was transferred to the left lateral decubitus position. Pulse, blood pressure, and oxygen saturation were monitored throughout the procedure. The endoscope was advanced beyond the duodenal bulb. Retroflexion within the gastric lumen was accomplished. The gastroscope was carefully removed. Digital rectal exam revealed no significant abnormality. The colonoscope was placed in position. The entire colon was evaluated. The colonoscope was carefully removed and the patient was transferred to recovery in stable condition. Please see findings and specimens below for detail. Findings:: Streaking distal esophagitis (36 to 42 cm) Gastroesophageal junction at 42 cm Sliding hiatal hernia Bowel preparation fair Fairly severe spasticity/lack of relaxation Polyps (see specimens) Specimens:: Antral biopsy Lobulated sessile proximal right colon polyp (cold snare) Partially pedunculated lobulated polyp at 15 cm (cold snare) Recommendations:: Proton pump inhibition Possible repeat EGD in 6-8 weeks Timing of repeat colonoscopy is pending pathology will likely be around 2-3 years secondary to size/nature of polyps and spasticity/lack of relaxation Consider gastroenterology consultation secondary to bloating . Complications:: No immediate Estimated blood obtained (mL): 1 Colonoscopy Component Colonoscopy Component Was a colonoscopy performed during today's procedure?: Yes Recommended follow up colonoscopy of at least 10 years?: No If no, follow up colonoscopy recommended in ___ years?: (See above) Reason for not recommending >/= 10 yr follow-up interval?: (See above)
--- NOTE | 2025-02-15 09:00 | EXP.ANES.CKL ---
[facility] Disclaimer: The information contained in this section may have been updated after the patient was seen, as this information can be updated by other users. Medical History (Updated 02/15/25 @ 08:59 by Lvian Dinero MD) Melanoma Surgical History (Updated 02/09/25 @ 11:39 by Elva Holley RN) Tibia fracture Family History (Updated 02/09/25 @ 11:38 by Elva Holley RN) Other No significant family history Social History (Updated 02/09/25 @ 11:38 by Elav Holley RN) Smoking Status: Never smoker alcohol intake: never substance use type: denies use current occupational status: employed Travel in the last 8 weeks?: None caffeine: Yes Have you lived/traveled outside US in past 30 days?: No Contact w/someone who lives/traveled outside US past 30 days?: No Exposure to someone with infectious disease in past 14 days?: No Do you have a fever (greater than 100.4 F or 38 C)?: No Have you tested positive for COVID-19?: No Exposed to someone with COVID-19 in past 14 days?: No Do you have a sore throat?: No Do you have a cough?: No Do you have any weakness?: No Do you have any diarrhea?: No Are you experiencing any unusual bleeding?: No Do you have any muscle aches/pain?: No Do you have any abdominal pain?: No Are you experiencing loss of taste or smell?: No [facility] Anesthesia Checklist Patient Identification Patient Identification: Arm Band and Verbal (Name & ) Structural Data Admitted From: Home Planned Operative Procedure/s: EGD/colonoscopy Consent for Planned Operative Procedure(s) Verified: Yes Verified Documents: Surgical Consent NPO Status Verified Time NPO: 00:00 Chart Verification Results Verified: None Additional verifications Anesthesia Reactions: No Hx Blood Transfusions: No Airway Assessment Mallampati Score:: Class II C-Spine Mobility Assessed: Yes TMJ Mobility Assessed: Yes Dentition: Good Dentition Neurological Assessment Level of Consciousness: Awake, Alert and Appropriate Hx Seizures: No Numbness or tingling in extremities: No Anesthesia Plan Anesthesia Risk discussed: Yes Anesthesia Plan: Verified ASA Class: II Anesthesia Type: MAC
[2025-02-15 10:02] VITALS: BP 93/63; PULSE 75; RESP 17; TEMP 36.2; O2SAT 93
[2025-02-15 10:17] VITALS: BP 92/62; PULSE 52; RESP 16; TEMP 36.2; O2SAT 99
[2025-02-15 10:32] VITALS: BP 96/60; PULSE 49; RESP 17; O2SAT 99
== END 2025-02-15 10:50 | disposition home or self-care (01) ==
PROVIDERS: PCP Internal Medicine Adolescent Medicine; Visit Provider Surgery
PROC: 0DJ08ZZ Inspection of Upper Intestinal Tract, Via Natural or Artificial Opening Endoscopic (ICD-10-PCS; CPT 45378; principal; 2025-02-15 09:30)
DX: K20.90 Esophagitis, unspecified without bleeding (principal); K44.9 Diaphragmatic hernia without obstruction or gangrene; D12.6 Benign neoplasm of colon, unspecified; K31.9 Disease of stomach and duodenum, unspecified; K21.9 Gastro-esophageal reflux disease without esophagitis; Z86.0101 Personal history of adenomatous and serrated colon polyps
CPT/HCPCS: 43239; 45385; J2003; J2704

== ENCOUNTER 2025-06-01 12:42 | Day surgery (SDC) | payer OTHER, SELFPAY ==
--- NOTE | 2025-05-26 07:07 | P.HP_ITS ---
History of Present Illness *Admission Date: 06/01/25 *History of present illness: Mr. Solano is a 49-year-old gentleman who is here for diagnostic EGD. The patient has had bloating and dysphagia. He did see Livan Dinero M.D. and had EGD and colonoscopy on 02/15/2025. The EGD showed streaking distal esophagitis, s liding hiatal hernia and reactive gastropathy. Dr. Giraldo recommended repeat EGD in 6 to 8 weeks and referred to GI. He did place the patient on Reglan twice daily. The patient does not appear to be on PPI therapy. The patient's colonoscopy at that time did show 2 polyps (tubular adenomas x 2) which were removed. The examination is deemed medically necessary for diagnostic EGD. The patient has been seen, interviewed and examined prior to the procedure by both myself and the anesthesia provider. [facility] Disclaimer: The information contained in this section may have been updated after the patient was seen, as this information can be updated by other users. Medical History Melanoma Surgical History Status post surgical removal of malignant neoplasm of skin History of colonoscopy History of esophagogastroduodenoscopy (EGD) Tibia fracture Family History Other No significant family history Social History Smoking Status: Never smoker alcohol intake: current alcohol intake frequency: a few times a month substance use type: denies use current occupational status: employed Travel in the last 8 weeks?: None caffeine: Yes Have you lived/traveled outside US in past 30 days?: No Contact w/someone who lives/traveled outside US past 30 days?: No Exposure to someone with infectious disease in past 14 days?: No Do you have a fever (greater than 100.4 F or 38 C)?: No Have you tested positive for COVID-19?: No Exposed to someone with COVID-19 in past 14 days?: No Do you have a sore throat?: No Do you have a cough?: No Do you have any weakness?: No Are you experiencing any nausea/vomitting?: No Do you have any diarrhea?: No Are you experiencing any unusual bleeding?: No Do you have any muscle aches/pain?: No Do you have any abdominal pain?: No Are you experiencing loss of taste or smell?: No Other Medical History Have you received the Flu Vaccine for this season: No Have you received the Pneumonia Vaccine: No Review of Systems Review of Systems Review of systems (narrative): Negative *Cardiovascular Comments: Negative *Gastrointestinal Comments: Negative *Genitourinary Comments: Negative *Musculoskeletal Comments: Negative *Neurologic Comments: Negative Meds Home Medications and Allergies Home Medications ?Medication ?Instructions ?Recorded ?Confirmed ?Type ropinirole 1 mg tablet 1 mg PO NEEDED PRN restle ss legs 03/30/25 06/01/25 History New Prescriptions to Start Prescriptions: Allergies Allergy/AdvReac Type Severity Reaction Status Date / Time No Known Allergies Allergy Verified 06/01/25 12:50 Exam *Routine HEENT Exam Head: Present normocephalic Eye: Present EOMI and PERRL ENT: Present mucous membranes moist *Routine Neck Exam Neck: Present supple *Routine Respiratory Exam Respiratory: Present CTA bilaterally *Routine Cardiovascular Exam Cardiovascular: Present RRR *Routine Abdominal Exam Abdominal: Present soft and normoactive bowel sounds; Absent tenderness *Routine Rectal Exam Rectal:: deferred *Routine Genitalia Exam Genitalia:: deferred *Routine Extremities Exam Extremities: Absent cyanosis, clubbing or edema *Routine Skin Exam Skin: Present warm; Absent rash *Routine Neurological Exam Neurological: Present alert and oriented X3 Assessment and Plan *Assessment and plan (1) Dysphagia: Status: Acute Category: Medical Code(s): R13.10 - Dysphagia, unspecified (2) Early satiety: Status: Acute Category: Medical Code(s): R68.81 - Early satiety (3) Abdominal bloating: Status: Acute Category: Medical Code(s): R14.0 - Abdominal distension (gaseous) (4) Gastroesophageal reflux: Status: Acute Qualifiers: Esophagitis presence: esophagitis presence not specified Qualified Code(s): K21.9 - Gastro-esophageal reflux disease without esophagitis Category: Medical Code(s): K21.9 - Gastro-esophageal reflux disease without esophagitis (5) Epigastric pain: Status: Acute Category: Medical Code(s): R10.13 - Epigastric pain Plan A/P: 1. Dysphagia with bloating is the preprocedural diagnosis. The patient also reports early satiety, dyspepsia and GERD. The patient will be anesthetized/sedated using MAC sedation. The patient has been seen and examined. Cardiac and lung assessment prior to the examination is stable. Proceed with planned diagnostic EGD.
[2025-05-31 15:19] VITALS: BMI 22.4
--- NOTE | 2025-06-01 07:08 | HMH.PROCNOTE ---
[facility] Procedure Note Date: 06/01/25 Time: 13:39 Procedure Note:: Upper Endoscopy Procedure Report: Esophagogastroduodenoscopy with cold biopsies and TTS balloon dilation Endoscopost: Cheo Harkins II, MD Referring Physician: Ricardo Carl M.D. Date of Procedure: June 01, 2025 Equipment: Olympus GIF-1100 standard upper endoscope Sedation: MAC sedation Indications: Mr. Solano is a 49-year-old gentleman who is here for diagnostic EGD. The patient has had bloating and dysphagia. The patient also reports epigastric discomfort/dyspepsia, belching and early satiety. He did see Livan Dinero M.D. and had EGD and colonoscopy on 02/15/2025. The EGD showed streaking distal esophagitis, sliding hiatal hernia and reactive gastropathy. Dr. Dinero recommended repeat EGD in 6 to 8 weeks and referred to GI. He did place the patient on Reglan twice daily. The patient also is taking [id number] Prilosec with some relief. The patient's colonoscopy at that time did show 2 polyps (tubular adenomas x 2) which were removed. The examination is deemed medically necessary for diagnostic EGD. Procedure: Prior to the procedure, a history and physical exam was performed, and patient's medications and allergies were reviewed. The risks, benefits and alternatives of the sedation and procedure were discussed with the patient. All questions were answered and informed consent was obtained. The patient was brought to the procedure room. Patient identification and proposed procedure were verified by the physician and the nurse. The patient was placed in a left lateral decubitus position and the scope was passed under direct vision. Throughout the procedure, the patient's blood pressure, pulse, and oxygen saturations were monitored continuously. The upper GI endoscopy was accomplished without difficulty. The patient tolerated the procedure well. Findings: The scope was passed directly into the upper esophagus and advanced to the third portion of the duodenum. The post bulbar duodenum, ampulla and duodenal bulb were normal with normal mucosa and conniventes. 2 cold biopsies were taken from the second portion of the duodenum for the disaccharidase assay. The scope was withdrawn through a normal duodenal bulb and pylorus into the stomach. There was very mild antral gastropathy with bile reflux. The body and fundus of the stomach were normal. Cold biopsies were taken from the antrum. Upon retroflexion, there was a 2 to 3 cm hiatal hernia. The scope was then withdrawn into the esophagus. There was grade C?D (LA classification) reflux esophagitis with superficial linear erosions and superficial ulceration distally. There is no evidence of Becerril's esophagus. There was a fairly insignificant peptic/ringlike mild stenosis and the entire esophagus was dilated to 60 Wolof/20 mm with a TTS hydrostatic balloon. The remainder of the esophageal mucosa was normal. Impression: 1. Grade C?D (LA classification) reflux esophagitis with small 2 to 3 cm hiatal hernia 2. Mild antral gastropathy with bile reflux Plan: I will follow-up the biopsies and disaccharidase assay. Based on the severity of the esophagitis, I would recommend that we initiate Voquezna. I would also recommend a fiber bowel regimen (combined MiraLAX plus Metamucil) on a regular and daily basis. I will discuss the findings with the patient and family.
[2025-06-01 12:51] VITALS: BP 140/80; PULSE 86; RESP 16; TEMP 36.4; O2SAT 98
[2025-06-01] MEDS: LACTATED RINGERS 1000ML 1,000 ML 50 ML IV (12:56)
--- NOTE | 2025-06-01 13:22 | P.PNANES_ITS ---
[facility] Disclaimer: The information contained in this section may have been updated after the patient was seen, as this information can be updated by other users. Medical History Melanoma Surgical History Status post surgical removal of malignant neoplasm of skin History of colonoscopy History of esophagogastroduodenoscopy (EGD) Tibia fracture Family History Other No significant family history Social History Smoking Status: Never smoker alcohol intake: current alcohol intake frequency: a few times a month substance use type: denies use current occupational status: employed Travel in the last 8 weeks?: None caffeine: Yes Have you lived/traveled outside [place] in past 30 days?: No Contact w/someone who lives/traveled outside US past 30 days?: No Exposure to someone with infectious disease in past 14 days?: No Do you have a fever (greater than 100.4 F or 38 C)?: No Have you tested positive for COVID-19?: No Exposed to someone with COVID-19 in past 14 days?: No Do you have a sore throat?: No Do you have a cough?: No Do you have any weakness?: No Are you experiencing any nausea/vomitting?: No Do you have any diarrhea?: No Are you experiencing any unusual bleeding?: No Do you have any muscle aches/pain?: No Do you have any abdominal pain?: No Are you experiencing loss of taste or smell?: No [facility] Anesthesia Checklist Patient Identification Patient Identification: Arm Band and Verbal (Name & ) Structural Data Admitted From: Home Planned Operative Procedure/s: EGD Consent for Planned Operative Procedure(s) Verified: Yes Verified Documents: Surgical Consent NPO Status Verified Time NPO: 00:00 Chart Verification Results Verified: None Additional verifications Anesthesia Reactions: No Hx Blood Transfusions: No Airway Assessment Mallampati Score:: Class II C-Spine Mobility Assessed: Yes TMJ Mobility Assessed: Yes Dentition: Good Dentition Neurological Assessment Level of Consciousness: Awake, Alert and Appropriate Hx Seizures: No Numbness or tingling in extremities: No Anesthesia Plan Anesthesia Risk discussed: Yes Anesthesia Plan: Verified ASA Class: II Anesthesia Type: MAC
[2025-06-01 13:38] VITALS: BP 114/68; PULSE 100; RESP 18; TEMP 36.4; O2SAT 95
[2025-06-01 13:48] VITALS: BP 115/73; PULSE 88; RESP 16; O2SAT 97
[2025-06-01 13:58] VITALS: BP 122/63; PULSE 90; RESP 16; O2SAT 98
[2025-06-01 14:08] VITALS: BP 115/69; PULSE 69; RESP 16; O2SAT 98
[2025-06-01 14:30] VITALS: BP 118/68; PULSE 70; RESP 18; O2SAT 99
[2025-06-08 18:39] LABS: Interpretation Notes (.); Lactase 1.62 (>/= 14.0); Maltase 163.21 (>/= 110.0); Palatinase 12.76 (>/= 8.5); Reference Notes (.); Sucrase 37.26 (>/= 25.0)
== END 2025-06-01 14:37 | disposition home or self-care (01) ==
PROVIDERS: PCP Internal Medicine Adolescent Medicine; Visit Provider Internal Medicine Gastroenterology
PROC: 0DJ08ZZ Inspection of Upper Intestinal Tract, Via Natural or Artificial Opening Endoscopic (ICD-10-PCS; CPT 43239; principal; 2025-06-01 14:00)
DX: K21.00 Gastro-esophageal reflux disease with esophagitis, without bleeding (principal); K31.89 Other diseases of stomach and duodenum; K44.9 Diaphragmatic hernia without obstruction or gangrene; K22.2 Esophageal obstruction
CPT/HCPCS: 43239; 43249; 82657; C1726; J2003; J2704; J7120

== ENCOUNTER 2025-06-16 14:42 | Outpatient (CLI) | payer OTHER, SELFPAY ==
--- OUTSIDE RECORDS SUMMARY | 2025-06-16 14:44 | XMS_ITS ---
Author Organization [facility] Address [address] [place] [id number] Care Team Providers Care Composition Roofer Name Role Phone Ricardo Carl MD Primary Care Provider [phone] Active Problems Problem Noted Date Diagnosed Date Malignant melanoma of other part of trunk 2017 Current Treatment and Therapy Plans No current plan information found. Past Treatment and Therapy Plans No past plan information found. Treatment Summaries Malignant melanoma of other part of trunk* Images from the original note were not included. Melanoma Survivorship Plan General Information Patient name Praveen Solano Date of 1975 Phone Email No e-mail address on record Cancer Treatment Team Patient Care Team: Tiffanie Bolden MD as Consulting Physician (General Surgery) Allyson Giang MD as Consulting Physician (Dermatology) Provider Phone numbers Care Team Provider: Tiffanie Bolden MD, ([phone]) Care Team Provider: Allyson Giang MD, ([phone]) Post Treatment Care Team Primary Care Physician Ricardo Baron MD [phone] [address] [facility] [address] Background Information Medical history No past medical history on file. Surgical history No past surgical history on file. Tobacco use History Smoking Status ??? Not on file Smokeless Tobacco ??? Not on file Family oncology history Cancer-related family history is not on file. Oncology Information No history exists. Complications during Therapy: No concerns stated Modification to Treatment Plan: No Modifications Lifetime Dose Tracking: No doses have been documented on this patient for the following tracked chemicals: Doxorubicin, Epirubicin, Idarubicin, Daunorubicin, Mitoxantrone, Bleomycin, Mitomycin, Doxorubicin Liposomal [No treatment plan] Persistent Treatment-Associated Adverse Effects at Completion of Therapy It is important to recognize that not every person experiences the following adverse events after treatment. You may not have any of these issues, a few or many adverse effects. Experiences are highly variable. Please discuss any adverse effects of cancer treatment with your cancer care team. After Surgical Therapy Melanoma Surgery Surgery for melanoma includes removing the entire melanoma tumor along with some normal looking tissue around its edge. In some cases lymph nodes found nearby are also removed. The risk of experiencing skilled nursing side effects of surgery depend upon they type of surgery, extent of surgery and the size of the melanoma tumor. Surgery to remove melanoma will leave a scar. The size of the scar will depend on the size and location of the tumor. Survivors should monitor the scar where the melanoma was removed for any new signs of swelling, nodule, lesion or enlarged lymph nodes and notify the doctor if present. Kimberly Node Biopsy Removal of the sentinel lymph node is the removal of the first lymph node to which cancer cells aremost likely to spread. After surgery, there may be pain and soreness in the area where the node wasremoved. Nerves may be damaged which may result in numbness or other changes in sensation. While sentinel node biopsy (as opposed to a lymph node dissection where more lymph nodes are removed) decreases the risk of developing lymphedema, the risk is not completely gone. Lymphedema Removal of lymph nodes can slow the normal flow of lymph in the area which can lead to swelling in that limb, also called lymphedema. Survivors who also received radiation therapy to the area where alymph node was removed may be at increased risk of developing lymphedema. In some cases, the lymphedema can occur years after cancer therapy was completed. Lymphedema can cause pain or discomfort, disfigurement, change in function, and increased risk of infection in the affected area and closest limb. Signs of lymphedema can include a feeling of fullness or heaviness, changes in the skin (red, thick, stiff), aching, tightness, and difficulty moving or flexing nearby joints. Other signs could be that your jewelry or clothes, like socks, pants or sleeves, may begin to feel tight on the affectedlimb. As signs of lymphedema could develop months or years after treatment, continue to monitor forsigns and notify your doctor. Several steps can be taken to help prevent and control lymphedema. Survivors should protect the potentially affected limb by avoiding cuts, scrapes, valdes, insect bites, shots/vaccines, blood draws, and IV sticks in order to decrease the risk of developing an infection in the limb. In addition, thesurvivor should protect the limb from the sun to avoid sunburn. Lastly, survivors should avoid tight clothing and jewelry, and blood pressures in the affected limb that might further slow the normal flow of lymph. Survivors of cancer, including those at risk for lymphedema, can and should exercise. Survivors should start slow and gradually increase intensity while monitoring your limb for changes in swelling or redness. If either occurs, stop exercising and notify your doctor for further direction. After Chemotherapy No chemotherapy received. After Radiation Therapy No radiation treatments received. Other Care of your Venous Access Device No Venous Access Device currently in place General After Cancer Treatment It is not uncommon for cancer to impact other areas of your life such as relationships, work and mental health. If you develop financial concerns, resources are sometimes available to assist in theseareas. Depression and anxiety can present either during or after cancer diagnosis and treatment. Itis important to discuss with your physician any of these concerns so these resources can be made available to you. General Cancer Support & Resources [facility], [place] [address] [facility] [address], [address] [place] [address] Med Onc: Cleaning Staff Supervisor Onc: Auto Service Representative: Elsy Brown - Psychiatric Nurse Practitioner: Nicolette Dickey APRN - [employer]! (A free smoking cessation program) Financial Counselor and Contact Information: [facility] Financial Counseling [phone] Hospice Physician Contact Information: Linda Duong - Local Cancer Support Group and Contact Information: Angelika Reese ([facility]) Yoga for Cancer Patients: Mondays and Wednesdays @ 10AM Angelika offers a free 1 month membership to cancer patients [facility]: This support group is open to anyone that has been diagnosed with cancer of any type. Meets at 6:30pm on the last Friday of each month. Location: [facility]; [address] [place] [address]. For more information call Jaqueline Valera @ . Melanoma Cancer Surveillance - Stage IA - IIA [facility] How Frequent? Dermatology Visit Every 6-12 months for 5 years, then annually as patient condition warrants Self Assessment Annual skin exam for life Regular basis - perform self skin and lymph node exam Ultrasound If lymph node examination is questionable, ultrasound should be performed: Every 3-12 months for first 2-3 years after diagnosis - ?? Patients who were offered but did not undergo sentinel lymph node biopsy ?? Patients in whom a sentinel lymph node biopsy was not possible (or not successful), or ?? Patients with a positive sentinel lymph node biopsy who did not undergo complete lymph node dissection Genetic Counseling History of 3 or more invasive melanomas, or a mix of invasive melanoma and pancreatic cancer diagnoses in an individual or family should consider genetic counseling Monitor for ongoing toxicities: None Specified Call your doctor if you have any of these signs or symptoms Pain that is new, unrelieved or bothersome. Difficulty with your emotions, anxiety, and/or depression. Physical problems that affect your abilities in your daily life or those that are bothersome (for example, continued fatigue, trouble sleeping, sexual problems, or edema). Referrals provided There are no referral needs at this time. Self Care Plan Self Care Plan: What You Can Do to Stay Healthy after Treatment for Cancer Cancer treatments may increase your chance of developing other health problems years after you havecompleted treatment. The purpose of this self care plan is to inform you about what steps you can take to maintain good health after cancer treatment. Keep in mind that every person treated for cancer is different and that these recommendations are not intended to be a substitute for the advice of a doctor or other health customer care representative. Please use these recommendations to talk with your health care provider about an appropriate follow up care plan for you. Surveillance for Your Cancer Recommendation Frequency Comments Cancer surveillance visit with medical provider that is focused on detecting signs of recurrence ofyour cancer. For additional information, visit www.livestrong.org or www.cancer.net/patient/Survivorship Frequency depends on type and stage of cancer you had. (If you had a higher risk cancer, you may be seen more often). Your doctor has provided you with a personalized cancer treatment summary and survivorship care plan. If you need another copy, ask your doctor. General Cancer Screening for Men Cancer screening tests are designed to find cancer or pre-cancerous areas before there are any symptoms and, generally, when treatments are most successful. Various organizations have developed guidelines for cancer screening for men. While these guidelines vary slightly between different organizations, they cover the same basic screening tests for prostate and colorectal cancers. In addition, during routine health examinations (at any age) your health care provider may also evaluate for cancers of the skin, mouth and thyroid. Not all screening tests are right for everyone. Your personal and family cancer history, and/or the presence of a known genetic predisposition, can affect which tests are right for you, and at what age you begin them. Therefore, you should discuss these with your health care provider. Your care plan will also include a section on follow up care foryour type of cancer, and these recommendations override the general screening recommendations for that particular type of cancer in the general population. The [place] [employer] (ACS) recommends these screening guidelines for men: Recommendation Frequency Comments Colon and Rectal Cancer Screening For more information see the ACS document Colorectal Cancer: Early Detection. www.cancer.org/ssLINK/tatywvnrhv-idfgpq-vuaeh-detection-jeanette Options for colon cancer screening can be divided into those that screen for both cancer and polyps, and those that just screen for cancer.Screening should begin at age 50 (unless you are considered high risk (see comments), using one of the following testing schedules: Tests that find polyps and cancer (Preferred over those that find cancer alone. If any of these tests are positive, a colonoscopy should be done.) ?? Flexible sigmoidoscopy every five years, or ?? Colonoscopy every 10 years, or ?? Double-contrast barium enema every five years, or ?? CT colonography (virtual colonoscopy) every five years Tests that primarily test for cancer ?? Yearly fecal occult blood test (FOBT)*, or ?? Yearly fecal immunochemical test (FIT) *, or ?? Stool DNA test (sDNA), interval uncertain* * The multiple stool take-home test should be used. One test done by the doctor in the office is not adequate. A colonoscopy should be done if the test is positive. Talk with your doctor about your medical history, and what colorectal cancer screening test and schedule is best for you. Individuals at higher risk of colon cancer should have screening earlier and potentially more frequently. Those at higher risk of colon and rectal cancer: ?? Individuals with a family history of colon or rectal cancer in a relative who was diagnosed before the age of 60 ?? Individuals with a history of polyps ?? Individuals with inflammatory bowel disease (Crohn's disease or ulcerative colitis) ?? Individuals with a genetic predisposition to colon or rectal cancer, such as hereditary non-polyposis colon cancer (HNPCC) syndrome or familial adenomatous polyposis (FAP) syndrome Prostate Cancer Screening For more information, see the ACS Document Prostate Cancer Prevention and Early Detection: http://www.cancer.org/cancer/prostatecancer/moreinformation/prostatecancerearlyd etection/index Starting at age 50 (unless you are considered high risk ), men should talk to their doctor about the pros and cons of prostate cancer testing, and then decide if they want to be tested. Tests that can be used to detect for prostate cancer include Prostate-specific antigen (PSA) or digital rectal exam (NURY). ndividuals are considered higher risk if they are and/or have a family history of prostate cancer. Those who are considered high risk should have this talk at age 40 or 45. Testicular Screening For more information, see the ACS Document Testicular Cancer Detection: http://www.cancer.org/cancer/testicularcancer/detailedguide/axayznxecj-rfrxqe-cx tection Men of any age can develop testicular cancer; however, about half of all cases occur in men between the ages of20 and 34. A testicular self- exam is recommended monthly after a man has gone through puberty. In doing so, mahad should look and feel for any hard lumps, rounded bumps, or any change in the size, shape, or consistency of his testicles. If something appears abnormal, see a health care provider for further evaluation. Sun Exposure and Skin Cancer Risk Skin cancer is the most commonly diagnosed type of cancer, and rates are on the rise. However, thisis one cancer that in most cases can be prevented or detected early. While you may hear that you need the sun to make vitamin D, in reality you only need a few minutes a day to do this. Exposure to ultraviolet (UV) rays, either by natural sunlight or tanning beds, can lead to skin cancer. In additio n, UV rays lead to other forms of skin damage, including wrinkles, loss of skin elasticity, dark patches (sometimes called age spots or liver spots), and pre- cancerous skin changes (such as dry, scaly, rough patches). Although dark- skinned people are less likely to develop skin cancer, they can anddo develop skin cancers, most often in areas that are not exposed to sun (on the soles of the feet,under nails, and genitals). You can do a lot to protect yourself from damaging UV rays and to detect skin cancer early. Start by practicing sun safety, including using a broad spectrum sunscreen (which protects against UVA and UVB rays) with an SPF of at least 30 every day, avoiding peak sun times (10 a.m. to 4 p.m., when therays are strongest) and wearing protective clothing such as hats, sunglasses and long- sleeved shirts. Examine your skin regularly so you become familiar with any moles or birthmarks. If a mole has changed in any way, you should have a health care provider examine the area. This includes a change in size, shape or color; the development of scaliness, bleeding, oozing, itchiness or pain; or the development of a sore that will not heal. If you have a lot of moles, it may be helpful to make note of moles using photographs or a mole map . For a guide to performing a skin exam, visit www.skincarephysicians.com/skincancernet/skin_examinations.html. Healthy Lifestyle For some cancer survivors, the experience is the motivation to making healthy lifestyle changes. Itmay seem insignificant, but these changes have been shown to reduce the risk of the cancer coming back or a new cancer developing. Below are some tips on adopting a healthier lifestyle. Maintaining ahealthy weight is important in cancer prevention, as is physical activity and eating a healthy diet. Strive to incorporate all three pieces of the puzzle: healthy weight, balanced diet and regular exercise. Recommendation Goal Comments Maintain a healthy weight. For more information, visit http://www.nhlbi.nih.gov/health/public/heart/obesity/lose_wt/index.htm www.win.niddk.nih.gov Call the [place] [employer] ?? Talk to your health care team about what a healthy weight is for you, and take steps to reach and maintain that weight. ?? For many people reaching their ideal weight can be a challenge; however, losing even 5 to 10 pounds can lower blood pressure, blood sugar and cholesterol levels. ?? Weigh yourself weekly to monitor for weight gain/loss Being overweight can increase your chance of your cancer coming back. Maintaining a healthy weight, physical activity and eating a healthy diet are all important in cancer prevention. Being overweight can increase your chance of having high blood pressure, high blood sugar and/or high cholesterol, which can lead to heart disease, diabetes and stroke. If you would like more information about your blood sugar, cholesterol or blood pressure, talk with your primary care provider. Eat a healthy diet, mostly from plant sources. For more information, visit http://www.Secure-NOK.gov/food-groups/ ?? Eat healthy, including plenty of fruits and vegetablesdaily. ?? Drink more water, less soda and juice. ?? Limit how much alcohol you drink (if you drink at all). Strive to have two- thirds of your plate be vegetables, fruits, whole grains and beans, while one- third or less should be an animal product. Choose fish and chicken and limit red meat and processed meats. Limit intake of alcohol to two drinks per day. Exercise. To learn more about recommendations for diet, activity and weight, visit AICR???s Guidelines for Survivors http://preventcancer.aicr.org/site/PageServer?pagename=patients_survivors_guidel vaishali ACS Eat Healthy and Get Active www.cancer.org/Healthy/EatHealthyGetActive/index ?? Experts recommend at least 30 minutes of yqfrjfez-mn-ymztjrfa activity per day, five days a week. Research shows that exercise can help you controlyour weight, improve your energy level, and help you sleep at night. The hernandez is to find a physical activity you enjoy such as walking, dancing or gardening and do it regularly. If you have been inactive for a while, start out slowly. You can start out by exercising 10 minutes a day several days a week. If you feel dizzy, short of breath, or have chest pain during exercise, stop exercising and talk with your primary care doctor. Do not use tobacco in any form. For more information, visit http://www.cdc.gov/tobacco/campaign/tips/ ?? If you use tobacco, quit as soon as possible. Smoking is the most preventable cause of in the [place] If you would like more information, ask your doctor or you can call a national hotline at 5(086)-QUIT-NOW. Have regular check-ups by a healthcare professional. For more information about healthy screening tests for men visit the U.S. Department of Health and Human Services. http://www.womenshealth.gov/rbpgdgjqs-fwovz-nfm-vaccines/izajjsjrs-ohvti-zhq-men / For more information about adult vaccinations visit the CDC: http://www.cdc.gov/vaccines/recs/schedules/adult-schedule.htm ?? Keep up-to-date on general health screening tests, including cholesterol, blood pressure and glucose (blood sugar) levels. ?? Get an annual influenza vaccine (flu shot). ?? Get vaccinated with the pneumococcal vaccine, which prevents a type of pneumonia, and re-vaccinated as determined by your health care team. ?? Don???t forget dental and eye health! ?? The [place] [employer] recommends adults have their eyes examined every two years until age 60, then annually. People who wear glasses or corrective lenses or are at high risk for eye problems (i.e., diabetics, family history of eye disease) should be seen more frequently. ?? The [place] [employer] recommends adults see their dentist at least once a year. No information on file. No information on file.
--- OUTSIDE RECORDS SUMMARY | 2025-06-16 14:44 | XMS_ITS | Clinical Summary ---
Author Organization [facility] Address [address] [place] [address] Care Team Providers Care Cafeteria Team Leader Name Role Phone Ricardo Baron MD Primary Care Provider [phone] Allergies Active Allergy Reactions Criticality Noted Date Comments Hydrocodone Itching Medium 06/03/2023 Oxycodone Itching Medium 06/03/2023 Medications acetaminophen (Tylenol) 500 MG tablet Take 2 tablets (1,000 mg) by mouth every 6 (six) hours if needed for pain. 100 tablet Active Additional Information Patient not taking.Reported on 06/26/2023 docusate sodium (Colace) 50 MG capsule Take 2 capsules (100 mg) by mouth 2 (two) times a day. 30 capsule Active Additional Information Patient not taking.Reported on 06/26/2023 Active Problems Problem Noted Date Diagnosed Date Pain in left tibia 05/16/2023 Social History Tobacco Use Types Packs/Day Years Used Date Smoking Tobacco: Never Passive Smoke Exposure: Yes Smokeless Tobacco: Current Tobacco Cessation:Ready to Q uit: Not Asked; Counseling Given: Not Answered Comments:Nicotine pouch Alcohol Use Standard Drinks/Week Comments Yes 0 (1 standard drink = 0.6 oz pur e alcohol) social PHQ-2 Answer Date Recorded Patient Health Questionnaire-2 Score 0 05/16/2023 PHQ-2A Answer Date Recorded Patient Health Questionnaire-2 Score 0 05/16/2023 Sex and Gender Information Value Date Recorded Sex Assigned at Not on file Legal Sex Male 7:26 PM EDT Gender Identity Not on file Sexual Orientation Not on file Last Filed Vital Signs Vital Sign Reading Time Taken Comments Blood Pressure 128/82 06/26/2023 8:10 AM EST Pulse 81 06/26/2023 8:10 AM EST Temperature 36.4 C (97.5 F) 06/26/2023 8:10 AM EST Respiratory Rate 16 06/11/2023 10:40 AM EDT Oxygen Saturation 100% 06/26/2023 8:10 AM EST Inhaled Oxygen Concentration - - Weight 74.8 kg (165 lb) 06/26/2023 8:10 AM EST Height 182.9 cm (6') 06/26/2023 8:10 AM EST Body Mass Index 22.38 06/26/2023 8:10 AM EST Plan of Treatment Health Maintenance Due Date Last Done Comments [facility]-HIV Screening 1974 [facility]-Infant/Child/Adol SDOH Screenings 1974 [facility]- SDOH Screenings 1992 [facility]-Adult SDOH Screenings 1992 [facility]-DTaP,Tdap,and Td Vaccine s (1 - Tdap) 1993 [facility]-Hepatitis B Vaccines (1 of 3 - 19+ 3-dose series) 1993 CT Colonography 11/21/2019 Colonoscopy 11/21/2019 FIT-DNA 11/21/2019 FIT 11/21/2019 FOBT 11/21/2019 Sigmoidoscopy 11/21/2019 [facility]-Colorectal Cancer Screening 11/21/2019 [facility]-Depression Screening 05/16/2024 05/16/2023 [facility]-Pneumococcal Vaccine: 50 + Years (1 of 1 - PCV) 2024 [facility]-Zoster Vaccines (1 of 2) 2024 [id number] Vaccine (3 - 2024- season) 2025 01/03/2021, 12/06/2020 [facility]-Influenza Vaccine (#1) 2025 [facility]-Hepatitis A Vaccines Aged Out 01/27/1998 No longer eligible based on patient's age to complete this topic [facility]-Hepatitis C Screening Completed 11/13/2019 HPV Vaccines Aged Out No longer eligi ble based on patient's age to complete this topic [facility]-HIB Vaccines Aged Out No longer e ligible based on patient's age to complete this topic [facility]-IPV Vaccines Aged Out No longer e ligible based on patient's age to complete this topic [facility]-Rotavirus Vaccines Aged Out No lo nger eligible based on patient's age to complete this topic Procedures Procedure Name Priority Date/Time Associated Diagnosis Comments HEPATITIS C ANTIBODY - ED W/REFLEX TO HCV QUANT PCR Routine 11/13/2019 5:39 PM EDT from Last 3 Months or Most Recently Relevant to Health Maintenance Results * [place] Hepatitis C Antibody (11/13/2019 5:39 PM EDT) [place] Hepatitis C Ab NEGATIVE Reference Range: Negative SUNQUEST 11/13/2019 5:39 PM EDT 11/13/2019 5:49 PM EDT Brandin T[facility] LAB BLOOD ORDERABLES Final Resul t SUNQUEST from Last 3 Months or Most Recently Relevant to Health Maintenance Care Teams Cafeteria Team Leader Relationship Specialty Start Date End Date Ricardo Baron MD [address] [place], [place] [id number] PCP - General 12/29/20
--- OUTSIDE RECORDS SUMMARY | 2025-06-16 14:44 | XMS_ITS | Clinical Summary ---
Author Organization [facility] Address [address] [place] [address] Care Team Providers Care Braille Duplicating Machine Operator Name Role Phone Ricardo Carl MD Primary Care Provider [phone] Allergies No known active allergies Medications diclofenac (VOLTAREN) 50 MG EC tablet Take 1 tablet by mouth 3 (Three) Times a Day. 15 tablet 11/16/2021 Active lidocaine (LIDODERM) 5 % Place 1 patch on the skin as directed by provider Daily. Remove & Discard patch within 12 hours or as directed by MD 30 patch 11/16/2021 Active Active Problems Problem Noted Date Diagnosed Date Malignant melanoma of other part of trunk 2017 Social History Tobacco Use Types Packs/Day Years Used Date Smoking Tobacco: Never Abuse Screen Answer Date Recorded Unsafe at Home or Work/School Not on file Feels Threatened by Someone? Not on file 07/2023 Does Anyone Keep You from Co ntacting Others or Doint Things Outside the Home? Not on file 05/29/2023 Physical Sign of Abuse Present Not on file 1 Housing Stability Answer Date Recorded Current Living Arrangements Not on file 05/18 Potentially Unsafe Housing Conditions Not on danielle e 05/29/2023 Family and Community Support Answer Duane e Recorded Help with Day-to-Day Activities Not on file 05/29/2023 Lonely or Isolated Not on file 05/29/2023 Employment Answer Date Recorded Do you want help finding or keeping work or a kirti b? Not on file 05/29/2023 Disabilities Answer Date Recorded Concentrating, Remembering, or Making Decisions Difficulty Not on file 05/29/2023 Doing Errands Independently Difficulty Not on fi le 05/29/2023 Education Answer Date Recorded Help with school or training? Not on file Preferred Language Not on file 05/29/2023 Sex and Gender Information Value Date Recorded Sex Assigned at Not on file Legal Sex Male 10:33 AM EDT Gender Identity Not on file Sexual Orientation Not on file Last Filed Vital Signs Vital Sign Reading Time Taken Comments Blood Pressure 132/85 11/16/2021 12:39 PM EDT Pulse 71 11/16/2021 12:56 PM EDT Temperature 36.9 C (98.5 F) 11/16/2021 9:56 AM EDT Respiratory Rate 16 11/16/2021 12:56 PM EDT Oxygen Saturation 98% 11/16/2021 12:56 PM EDT Inhaled Oxygen Concentration - - Weight 74.8 kg (165 lb) 11/16/2021 9:56 AM EDT Height 182.9 cm (6') 11/16/2021 9:56 AM EDT Body Mass Index 22.38 11/16/2021 9:56 AM EDT Plan of Treatment Health Maintenance Due Date Last Done Comments TDAP/TD VACCINES (1 - Tdap) 1993 ANNUAL PHYSICAL 02/06/2018 HEPATITIS C SCREENING 02/06/2018 COLOGUARD 11/21/2019 COLON CANCER SCREENING 5 YEAR SIGMOIDOSCOPY 11/21/2019 COLONOSCOPY 11/21/2019 COLORECTAL CANCER SCREENING 11/21/2019 CT COLONOGRAPHY 11/21/2019 FECAL OCCULT BLOOD TEST 11/21/2019 FIT Testing (1 year) 11/21/2019 Pneumococcal Vaccine 50+ (1 of 1 - PCV) 2024 ZOSTER VACCINE (1 of 2) 2024 INFLUENZA VACCINE 03/18/2025 Care Teams Braille Duplicating Machine Operator Relationship Specialty Start Date End Date Ricardo Carl MD [address] [place] [address] [place] [id number] PCP - General Adolescent Medicine 11/16/21
--- NOTE | 2025-06-16 14:45 | XR_ITS ---
FINAL REPORT CLINICAL HISTORY: CELLULITIS OF HAND, SPLINTER RT HAND COMPARISON: None FINDINGS: RIGHT HAND Three views demonstrate no acute fracture or dislocation. There is a healed fracture of the distal fifth metacarpal. The visualized joint spaces are normally aligned. The soft tissues are unremarkable, specifically no radiopaque foreign body is identified. IMPRESSION: No acute bony abnormality. No radiopaque foreign body. Reviewed, Interpreted and Dictated by Casey Epstein MD Transcribed by Chen Dubon Authenticated and [facility]
== END 2025-06-16 23:59 | disposition home or self-care (01) ==
LOC: RAD 14:43
PROVIDERS: PCP Internal Medicine Adolescent Medicine; Visit Provider Nurse Practitioner Family
DX: S60.551A Superficial foreign body of right hand, initial encounter (principal); L03.113 Cellulitis of right upper limb
CPT/HCPCS: 73130